=== PATIENT | male | born 2005 | race African-American/Black ===

== ENCOUNTER 2023-10-12 00:51 | Emergency (ER) | payer OTHER, SELFPAY ==
--- NOTE | ~2023-10-12 | XR_ITS ---
Portable chest x-ray Comparison: None Clinical History: Chest pain Findings: Lungs are clear, without focal consolidation or pleural effusion. Cardiomediastinal silho uette is unremarkable. Bones and soft tissues are unremarkable. Impression: Clear lungs. Reviewed, dictated and finalized at location M. Impression: Clear lungs.
[2023-10-12 00:56] VITALS: BP 146/97; PULSE 112; RESP 20; TEMP 39.3; O2SAT 96
[2023-10-12 01:43] LABS: Influenza A QL RT-PCR Negative (Negative); Influenza B QL RT-PCR Negative (Negative); RSV RNA, RT-PCR Negative (Negative); SARS-CoV-2 RNA PCR Negative (Negative)
[2023-10-12 01:58] VITALS: O2SAT 98
--- NOTE | 2023-10-12 02:10 | ED.GENADULT ---
HPI - General Adult General Chief complaint: Upper Respiratory Infection Stated complaint: cough x 1 week with congestion Time Seen by Provider: 10/12/23 01:59 History of Present Illness HPI narrative: 18-year-old male presents emergency department for evaluation for cough and congestion that worsened on Sunday. Patient did have follow-up with primary care physician was started on antibiotics. Patient has been taking Augmentin today. Patient does have history of asthma and has been taking his breathing treatments. Related Data Allergies Allergy/AdvReac Type Severity Reaction Status Date / Time peanut Allergy Dyspnea / Verified 10/12/23 00:54 SOB tree nut Allergy Dyspnea / Verified 10/12/23 00:54 SOB Review of Systems Review of Systems: All systems reviewed & are unremarkable except as noted in HPI and below Exam Narrative: APPEARANCE: Well appearing, no pain, no distress, well-nourished. HEAD: normocephalic, atraumatic. EYES: PERRLA/EOMI, conjunctivae clear. NOSE: Normal no drainage EARS:TMS clear with good light reflex. THROAT: Pharynx clear, no exudate. NECK: Supple. No adenopathy, no masses. RESPIRATORY: Airway patent, respirations nonlabored. Clear to auscultation bilaterally, no rales, rhonchi, wheezing. CARDIOVASCULAR: Regular rate and rhythm without murmurs rubs or gallops. ABDOMINAL: Soft, nontender, nondistended, normal bowel sounds MUSCULOSKELETAL: Moves all extremities. Strength/ROM intact, No edema, No calf tenderness. NEURO: Alert. Cranial nerves II through XII intact. Good gait. Good coordination SKIN: Warm, dry. Normal Color Course Vital Signs Vital signs: Vital Signs Temperature 102.7 F H 10/12/23 00:56 Pulse Rate 112 H 10/12/23 00:56 Respiratory Rate 10/12/23 00:56 Blood Pressure 146/97 H 10/12/23 00:56 Pulse Oximetry 96 10/12/23 00:56 Oxygen Delivery Room Air 10/12/23 00:56 Temperature 100.2 F H 10/12/23 02:42 Pulse Rate 99 10/12/23 02:42 Respiratory Rate 20 10/12/23 02:42 Blood Pressure 139/86 10/12/23 02:42 Pulse Oximetry 96 10/12/23 02:42 Oxygen Delivery Room Air 10/12/23 01:58 Medical Decision Making MDM Narrative Medical decision making narrative: 18-year-old male presents emergency department for evaluation for cough and congestion. Patient was already started on Augmentin. Patient was also started additional azithromycin. Chest x-ray was negative. Patient and family are updated the results of the workup plan for treatment. All questions concerns were addressed. Differential Diagnosis Differential Diagnosis: COVID, RSV, influenza, pneumonia Vital Signs Vital Signs: Vital Signs Temperature 102.7 F H 10/12/23 00:56 Pulse Rate 112 H 10/12/23 00:56 Respiratory Rate 20 10/12/23 00:56 Blood Pressure 146/97 H 10/12/23 00:56 Pulse Oximetry 96 10/12/23 00:56 Oxygen Delivery Room Air 10/12/23 00:56 Temperature 100.2 F H 10/12/23 02:42 Pulse Rate 99 10/12/23 02:42 Respiratory Rate 20 10/12/23 02:42 Blood Pressure 139/86 10/12/23 02:42 Pulse Oximetry 96 10/12/23 02:42 Oxygen Delivery Room Air 10/12/23 01:58 Lab Data Lab results reviewed: Yes I reviewed the patient's lab results. Labs: Lab Results 10/12/23 Range/Units 01:02 Influenza A (RT-PCR) Negative (Negative) Influenza B (RT-PCR) Negative (Negative) RSV (RT-PCR) Negative (Negative) SARS-CoV-2 RNA (RT-PCR) Negative (Negative) Imaging Data My impression: Chest x-ray: no acute cardiopulmonary abnormality Discharge Plan Discharge Clinical Impression: Upper respiratory infection Patient Disposition: Home, Self-Care Condition: Stable Instructions: Antibiotic Form, Pneumonia (ED) Additional Instructions: Continue taking Augmentin. Start taking azithromycin as well. Tessalon Perles for cough. Tylenol and ibuprofen for fever control. Have close follow-up with your primary care ph
[2023-10-12] MEDS: ALBUTEROL SULFATE NEB 2.5 MG/3 ML INH INHALATION (02:21)
[2023-10-12 02:22] VITALS: PULSE 100; RESP 20
[2023-10-12 02:28] VITALS: PULSE 95; RESP 20
[2023-10-12] MEDS: ACETAMINOPHEN 500 MG TABLET 1000 MG PO (02:33)
[2023-10-12] MEDS: IBUPROFEN 600 MG TABLET PO (02:33)
[2023-10-12] MEDS: BENZONATATE 100 MG CAPSULE PO (02:33)
[2023-10-12] MEDS: AZITHROMYCIN 250 MG TABLET 500 MG PO (02:37)
[2023-10-12 02:42] VITALS: BP 139/86; PULSE 99; RESP 20; TEMP 37.9; O2SAT 96
== END 2023-10-12 02:44 | disposition home or self-care (01) ==
PROVIDERS: Emergency Provider Emergency Medicine
DX: J06.9 Acute upper respiratory infection, unspecified (principal); J45.909 Unspecified asthma, uncomplicated; Z20.822 Contact with and (suspected) exposure to COVID-19
CPT/HCPCS: 71045; 87637; 94640; 99283; A9270